=== PATIENT | female | born 1940 | race Caucasian/White ===

== ENCOUNTER 2019-01-27 12:12 | Inpatient (IN) | payer MEDICAID ==
[~2019-01-27] VITALS: Ht 154.9 cm; Wt 72.4 kg
[~2019-01-27 12:12] MED LIST: PANT40TA4 PO
[2019-01-27] MEDS ORDERED: ACETAMINOPHEN 500 MG TAB PO STA (14:20)
[2019-01-27] MEDS ORDERED: HYDROCODONE/APAP (5/325) TAB PO PRN (19:00)
[2019-01-27] MEDS ORDERED: LORAZEPAM 2 MG INJ IV PRN (19:00)
[2019-01-27] MEDS ORDERED: hydrALAzine 20 MG INJ IV PRN (19:00)
[2019-01-27] MEDS ORDERED: ALBUTEROL/IPRATROPIUM (NEB) 3 ML AMP HHN PRN (19:00)
[2019-01-27] MEDS ORDERED: MAGNESIUM HYDROXIDE 30ML CUP PO PRN (19:00)
[2019-01-27] MEDS ORDERED: NITROGLYCERIN (SL) 0.4 MG TAB SL PRN (19:00)
[2019-01-27] MEDS ORDERED: morphine 2 MG INJ IV PRN (19:00)
[2019-01-27] MEDS ORDERED: NACL 0.9% 3 ML SYG IV SCH (19:00)
[2019-01-27] MEDS ORDERED: ONDANSETRON 4 MG INJ IV PRN ×2 (19:00)
[2019-01-27] MEDS ORDERED: DOCUSATE SODIUM 100 MG CAP PO PRN (19:00)
[2019-01-27] MEDS ORDERED: ACETAMINOPHEN 325 MG TAB PO PRN ×2 (19:00)
[2019-01-27] MEDS: SOD CHLORIDE 0.45% 1,000 ML IV SCH (20:03)
[2019-01-27 22:10] VITALS: BP 155/65; PULSE 63; RESP 18
[2019-01-27] MEDS: PIPER-TAZO 3.375 GM IV (PMX) 100 ML IVPB SCH (23:49)
[2019-01-27 23:55] VITALS: Ht 154.9 cm; Wt 72.4 kg
[2019-01-28] MEDS ORDERED: DIPHENHYDRAMINE 25 MG CAP PO PRN (01:00)
[2019-01-28 02:02] VITALS: BP 139/78; PULSE 79; RESP 20
[2019-01-28] MEDS: PANTOPRAZOLE (EC) 40 MG TAB PO SCH (05:33)
[2019-01-28] MEDS: PIPER-TAZO 3.375 GM IV (PMX) 100 ML IVPB SCH ×3 (05:34→17:37)
[2019-01-28 08:05] VITALS: BP 123/66; PULSE 68; RESP 18
[2019-01-28] MEDS: SOD CHLORIDE 0.45% 1,000 ML IV SCH ×2 (10:20→11:56)
[2019-01-28 14:00] VITALS: BP 131/70; PULSE 65; RESP 18
[2019-01-28] MEDS ORDERED: INDOMETHACIN 50 MG SUPP PR ONE (17:00)
[2019-01-28 20:00] VITALS: BP 149/72; PULSE 63; RESP 18
[2019-01-29] VITALS (13 sets, daily range): BP systolic 103–157; BP diastolic 53–85; PULSE 60–88; RESP 15–20
[2019-01-29] MEDS: PIPER-TAZO 3.375 GM IV (PMX) 100 ML IVPB SCH ×5 (00:16→23:57)
[2019-01-29] MEDS: SOD CHLORIDE 0.45% 1,000 ML IV SCH ×2 (03:35→18:55)
[2019-01-29] MEDS: PANTOPRAZOLE (EC) 40 MG TAB PO SCH (05:32)
[2019-01-29] MEDS ORDERED: IOHEXOL 300MG/ML 30 ML BTL ONE (11:38)
[2019-01-29] MEDS ORDERED: CEFAZOLIN 1 GM INJ ONE (12:24)
[2019-01-29] MEDS ORDERED: ROCURONIUM 50 MG INJ ONE (12:24)
[2019-01-29] MEDS ORDERED: FENTAnyl 50 MCG/ML VIAL ONE (12:24)
[2019-01-29] MEDS ORDERED: MIDAZOLAM 1 MG/ML 2 ML INJ ONE (12:24)
[2019-01-29] MEDS ORDERED: PROPOFOL 20 ML ONE (12:24)
[2019-01-29] MEDS ORDERED: METOCLOPRAMIDE 10 MG INJ ONE (12:42)
[2019-01-29] MEDS ORDERED: hydrALAzine 20 MG INJ ONE (12:42)
[2019-01-29] MEDS ORDERED: ONDANSETRON 4 MG INJ ONE (12:42)
[2019-01-29] MEDS ORDERED: DEXAMETHASONE 4 MG/ML 5 ML INJ ONE (12:42)
[2019-01-29] MEDS ORDERED: SUGAMMADEX SODIUM 200 MG/2 ML VIAL IV ONE (12:55)
[2019-01-29] MEDS ORDERED: LABETALOL HCL 20MG INJ IV PRN (13:00)
[2019-01-29] MEDS ORDERED: DIPHENHYDRAMINE 50 MG INJ IV PRN (13:00)
[2019-01-29] MEDS ORDERED: EPHEDrine 25 MG/5 ML SYG IV PRN (13:00)
[2019-01-29] MEDS ORDERED: ALBUTEROL 0.083% (NEB) 2.5 MG/3 ML AMP HHN PRN (13:00)
[2019-01-29] MEDS ORDERED: hydrALAzine 20 MG INJ IV PRN (13:00)
[2019-01-29] MEDS ORDERED: ONDANSETRON 4 MG INJ IV PRN (13:00)
[2019-01-29] MEDS ORDERED: METOCLOPRAMIDE 10 MG INJ IV PRN (13:00)
[2019-01-29] MEDS ORDERED: HYDROmorphONE 1 MG/5 ML IV SYRINGE IV PRN ×2 (13:00)
[2019-01-29] MEDS ORDERED: FENTAnyl 50 MCG/ML VIAL IV PRN ×2 (13:00)
[2019-01-29] MEDS ORDERED: MEPERIDINE 25 MG INJ IV PRN (13:00)
[2019-01-29] MEDS ORDERED: BARIUM SULF 2% 450 ML BTL (BERRY SMOOTHIE) PO ONE (13:30)
[2019-01-30 02:00] VITALS: BP 144/71; PULSE 72; RESP 17
[2019-01-30] MEDS: PANTOPRAZOLE (EC) 40 MG TAB PO SCH (06:02)
[2019-01-30] MEDS: PIPER-TAZO 3.375 GM IV (PMX) 100 ML IVPB SCH ×2 (06:02→12:28)
[2019-01-30 07:18] VITALS: BP 124/59; PULSE 56; RESP 18
[2019-01-30] MEDS: SOD CHLORIDE 0.45% 1,000 ML IV SCH (12:54)
[2019-01-30 14:12] VITALS: BP 113/58; PULSE 66; RESP 16
== END 2019-01-30 17:13 | disposition home or self-care (01) | DRG 445 ==
LOC: FTE 12:12 → PP2 18:44
PROVIDERS: ADMIT Internal Medicine; ATTEND Family Medicine
PROC: 0FC98ZZ Extirpation of Matter from Common Bile Duct, Via Natural or Artificial Opening Endoscopic (ICD-10-PCS; principal; 2019-01-29 12:00)
DX: K80.51 Calculus of bile duct without cholangitis or cholecystitis with obstruction (principal); B17.9 Acute viral hepatitis, unspecified; R17 Unspecified jaundice; E78.5 Hyperlipidemia, unspecified; J45.909 Unspecified asthma, uncomplicated
CPT/HCPCS: 36415; 74160; 74176; 74181; 74182; 74330; 76705; 80048; 80053; 80061; 80076; 81003; 82378; 83036; 83690; 83735; 84100; 84439; 84443; 85025; 85610; 85730; 86301; 86704; 86709; 86803; 87340; 97161; 97166; C2617; J0360; J0690; J1100; J2250; J2405; J2543; J2765; J3010; Q9967